=== PATIENT | female | born 1990 | race Two or more races ===

== ENCOUNTER → 2019-11-03 | Emergency (ER) | payer OTHER ==
[~2019-11-03] VITALS: Ht 162.6 cm; Wt 72.6 kg
[2019-11-03 18:58] VITALS: BP 109/72
== END | disposition left against medical advice (07) ==
LOC: ER 18:48 → EDBD 18:48
DX: R51 Headache (principal); Z53.21 Procedure and treatment not carried out due to patient leaving prior to being seen by health care provider